=== PATIENT | female | born 1980 | race Caucasian/White ===

== ENCOUNTER 2021-12-21 17:45 | Inpatient (IN) | payer MEDICAID, OTHER ==
[~2021-12-21] VITALS: Ht 134.6 cm; Wt 41.7 kg
[2021-12-21] MEDS ORDERED: PANTOPRAZOLE 80 MG in SODIUM CHLORIDE 0.9% 100 ML IV STA (18:33)
[2021-12-21 18:48] LABS: BASOPHILS % 0.2 % (0.0-2.0); EOSINOPHILS % 0.7 % (0.0-5.0); LYMPHOCYTES % 17.8 % (20.0-50.0); MEAN CORPUSCULAR HEMOGLOBIN 15.7 pg (28.0-32.0); MEAN CORPUSCULAR VOLUME 56.4 fL (81.0-99.0); MEAN PLATELET VOLUME 8.6 fl (7.4-10.4); MONOCYTES % 10.4 % (2.0-8.0); NEUTROPHILS % 70.9 % (40.0-76.0); PLATELET 219 x1000/uL (130-400); RED BLOOD CELL COUNT 3.68 mill/uL (4.2-5.4); RED CELL DISTRIBUTION WIDTH 21.2 % (11.6-14.6)
[2021-12-21 18:53] LABS: CHLORIDE 103 mEq/L (98-107)
[2021-12-21 18:57] LABS: PARTIAL THROMBOPLASTIN TIME 25.9 sec (23.4-31.0); PROTHROMBIN TIME 10.5 sec (9.6-11.0)
[2021-12-21 19:18] LABS: HEMATOCRIT. 20.8 % (36.0-48.0); HEMOGLOBIN. 5.8 g/dL (12.0-16.0)
[2021-12-21 22:06] LABS: PLATELET ESTIMATE NORMAL
[2021-12-22] VITALS (8 sets, daily range): BP systolic 90–139; BP diastolic 62–80
[2021-12-22] MEDS ORDERED: LEVE1000 PO (01:36)
[2021-12-22] MEDS ORDERED: PHEN97.22 PO (01:36)
[2021-12-22] MEDS ORDERED: PERA4TAB PO (01:36)
[2021-12-22] MEDS ORDERED: PHEN32.46 PO (01:36)
[2021-12-22] MEDS ORDERED: LORA2ORA5 PO (01:36)
[2021-12-22] MEDS ORDERED: LORAZEPAM 1MG TABLET PO PRN (02:00)
[2021-12-22 06:25] LABS: BASOPHILS % 0.4 % (0.0-2.0); EOSINOPHILS % 0.8 % (0.0-5.0); HEMATOCRIT. 27.4 % (36.0-48.0); HEMOGLOBIN. 8.3 g/dL (12.0-16.0); LYMPHOCYTES % 14.3 % (20.0-50.0); MEAN CORPUSCULAR HEMOGLOBIN 19.1 pg (28.0-32.0); MEAN CORPUSCULAR VOLUME 63.2 fL (81.0-99.0); MONOCYTES % 11.1 % (2.0-8.0); NEUTROPHILS % 73.4 % (40.0-76.0); PLATELET 215 x1000/uL (130-400); RED BLOOD CELL COUNT 4.33 mill/uL (4.2-5.4); RED CELL DISTRIBUTION WIDTH 31.5 % (11.6-14.6)
[2021-12-22 06:33] LABS: CHLORIDE 105 mEq/L (98-107)
[2021-12-22] MEDS ORDERED: PHENOBARBITAL 60MG TABLET PO SCH (09:00)
[2021-12-22] MEDS: POLYETHYLENE GLYCOL 3350 (17GM) 1 DOSE PACK PO SCH (09:33)
[2021-12-22] MEDS: LEVETIRACETAM 500MG/5ML CUP PO SCH ×2 (09:33→21:33)
[2021-12-22 17:23] LABS: TOTAL IRON BINDING CAPACITY 403 ug/dL (250-450)
[2021-12-22] MEDS: PHENOBARBITAL 30 MG TABLET PO SCH (17:26)
[2021-12-22 17:40] LABS: VITAMIN B12 SERUM 1264 pg/mL (211-911)
[2021-12-22 18:00] LABS: FERRITIN < 5 ng/mL (10-291)
[2021-12-22 20:26] LABS: HEMATOCRIT 26.4 % (36.0-48.0); HEMOGLOBIN 7.9 g/dL (12.0-16.0)
[2021-12-22] MEDS: PANTOPRAZOLE SODIUM 40 MG/VIAL IV SCH (21:33)
[2021-12-23] VITALS: BP 118/67
[2021-12-23 01:50] LABS: HEMATOCRIT 25.9 % (36.0-48.0); HEMOGLOBIN 7.6 g/dL (12.0-16.0)
[2021-12-23 04:00] VITALS: BP 130/80
[2021-12-23 07:06] LABS: BASOPHILS % 0.5 % (0.0-2.0); EOSINOPHILS % 9.9 % (0.0-5.0); HEMATOCRIT. 27.5 % (36.0-48.0); HEMOGLOBIN. 8.1 g/dL (12.0-16.0); LYMPHOCYTES % 15.9 % (20.0-50.0); MEAN CORPUSCULAR VOLUME 64.5 fL (81.0-99.0); MONOCYTES % 7.3 % (2.0-8.0); NEUTROPHILS % 66.4 % (40.0-76.0); PLATELET 258 x1000/uL (130-400); RED BLOOD CELL COUNT 4.26 mill/uL (4.2-5.4); RED CELL DISTRIBUTION WIDTH 32.5 % (11.6-14.6)
[2021-12-23 07:18] LABS: PROTHROMBIN TIME 10.7 sec (9.6-11.0)
[2021-12-23 07:19] LABS: CHLORIDE 107 mEq/L (98-107)
[2021-12-23 08:00] VITALS: BP 117/65
[2021-12-23] MEDS: PANTOPRAZOLE SODIUM 40 MG/VIAL IV SCH (09:00)
[2021-12-23] MEDS: PHENOBARBITAL 30 MG TABLET PO SCH ×2 (09:00→16:35)
[2021-12-23] MEDS: POLYETHYLENE GLYCOL 3350 (17GM) 1 DOSE PACK PO SCH (09:00)
[2021-12-23] MEDS: LEVETIRACETAM 500MG/5ML CUP PO SCH (09:00)
[2021-12-23] MEDS ORDERED: ONDANSETRON HCL 4MG/2ML INJ IV PRN (09:15)
[2021-12-23] MEDS ORDERED: SODIUM CHLORIDE 0.9% 500 ML IV ONE (11:30)
[2021-12-23] MEDS ORDERED: DEXT 5%/0.9% NACL 1,000 ML IV SCH (11:30)
[2021-12-23 12:00] VITALS: BP 111/67
[2021-12-23 13:53] LABS: PLATELET ESTIMATE NORMAL
[2021-12-23] MEDS ORDERED: FERR-71 MT (14:42)
[2021-12-23] MEDS ORDERED: DOCU250C14 MT (14:42)
[2021-12-23 16:00] VITALS: BP 123/81
[2021-12-23 17:11] VITALS: BP 123/81
[2021-12-23 18:18] LABS: CLARITY URINE CLEAR (CLEAR); COLOR URINE YELLOW (YELLOW); KETONES URINE NEGATIVE (NEGATIVE); LEUKOCYTE ESTERASE URINE NEGATIVE (NEGATIVE); NITRITE URINE NEGATIVE (NEGATIVE); OCCULT BLOOD URINE 1+ (NEGATIVE); PH URINE 6.5 (4.5-8.0); PROTEIN URINE NEGATIVE (NEGATIVE); SPECIFIC GRAVITY URINE 1.014 (1.005-1.030); UROBILINOGEN URINE 0.2 E.U./dL (0.2-1.0)
[2021-12-23 18:19] LABS: HEMATOCRIT 26.8 % (36.0-48.0); HEMOGLOBIN 7.8 g/dL (12.0-16.0)
[2021-12-23 18:43] LABS: HCG SCREEN NEGATIVE
== END 2021-12-23 19:00 | disposition home or self-care (01) | DRG 254 ==
LOC: ER 17:45 → 7WST 21:27 → ENRESERV 22:50 → 7WST 12-22 00:16
PROVIDERS: ADMIT Internal Medicine; ATTEND Internal Medicine
PROC: 30233N1 Transfusion of Nonautologous Red Blood Cells into Peripheral Vein, Percutaneous Approach (ICD-10-PCS; principal; 2021-12-21)
PROC: 0DJ08ZZ Inspection of Upper Intestinal Tract, Via Natural or Artificial Opening Endoscopic (ICD-10-PCS; 2021-12-23)
DX: K92.1 Melena (principal); E87.1 Hypo-osmolality and hyponatremia; D50.9 Iron deficiency anemia, unspecified; G40.909 Epilepsy, unspecified, not intractable, without status epilepticus; G80.9 Cerebral palsy, unspecified; Z20.822 Contact with and (suspected) exposure to COVID-19; K59.00 Constipation, unspecified; Z86.16 Personal history of COVID-19
CPT/HCPCS: 36415; 80048; 80053; 81003; 82607; 82728; 82746; 83540; 83550; 84703; 85014; 85018; 85025; 85044; 86850; 86900; 86920; 87426; 99291; C9113; J7042; J7050; P9016